=== PATIENT | male | born 1970 | race Caucasian/White ===

== ENCOUNTER 2019-11-02 21:33 | Emergency (ER) | payer MEDICAID, OTHER ==
[~2019-11-02] VITALS: Ht 180.3 cm; Wt 72.6 kg
[2019-11-02 21:52] VITALS: BP 136/88
== END 2019-11-02 23:10 | disposition home or self-care (01) ==
LOC: ER 21:36
DX: E11.9 Type 2 diabetes mellitus without complications (principal); Z76.0 Encounter for issue of repeat prescription
CPT/HCPCS: 82962

== ENCOUNTER 2019-12-17 21:03 | Emergency (ER) | payer MEDICAID ==
[~2019-12-17] VITALS: Ht 180.3 cm; Wt 72.6 kg
[2019-12-17 21:28] VITALS: BP 114/82
[2019-12-17 22:43] LABS: Basophils # (auto) 0.1 10 ^3/uL (0-0.2); Basophils % (auto) 1.3 % (0.0-2.0); Eosinophils # (auto) 0.2 10 ^3/uL (0-0.8); Eosinophils % (auto) 3.7 % (0.0-7.0); Hematocrit 44.8 % (41.0-53.0); Hemoglobin 15.1 g/dL (13.5-17.5); Lymphocytes # (auto) 1.1 10 ^3/uL (0.4-5.4); Lymphocytes % (auto) 23.5 % (10.0-50.0); Mean Corpuscular Hemoglobin 30.3 pg (28.0-32.0); Mean Corpuscular Hgb Conc. 33.6 g/dL (32.0-36.0); Mean Corpuscular Volume 90.1 fL (80.0-100.0); Monocytes # (auto) 0.5 10 ^3/uL (0-1.3); Monocytes % (auto) 10.9 % (0.0-12.0); Neutrophils # (auto) 2.9 10 ^3/uL (1.6-8.6); Neutrophils % (auto) 60.6 % (37.0-80.0); Platelet Count (auto) 243 10^3/uL (140-450); Red Blood Cells 4.97 10^6/uL (4.5-5.90); Red Cell Distribution Width 12.8 % (11.8-14.3); White Blood Cell 4.8 10^3/uL (4.4-10.8)
[2019-12-17 23:03] LABS: Albumin 3.7 g/dL (3.4-5.0); Calcium 8.8 mg/dL (8.5-10.1); Potassium 4.3 mmol/L (3.5-5.1)
[2019-12-17 23:07] LABS: Bilirubin, Total 0.5 mg/dL (0.2-1.0); Total Protein 7.5 g/dL (6.4-8.2)
== END 2019-12-17 23:00 | disposition left against medical advice (07) ==
LOC: ER 21:03
DX: R53.1 Weakness (principal); Z53.21 Procedure and treatment not carried out due to patient leaving prior to being seen by health care provider
CPT/HCPCS: 36415; 80053; 82962; 85025

== ENCOUNTER 2021-02-20 22:13 | Emergency (ER) | payer MEDICAID ==
[~2021-02-20] VITALS: Ht 180.3 cm; Wt 77.1 kg
[2021-02-21 02:31] VITALS: BP 112/81
== END 2021-02-21 03:29 | disposition home or self-care (01) ==
LOC: ER 22:15
DX: J06.9 Acute upper respiratory infection, unspecified (principal); K12.2 Cellulitis and abscess of mouth; E11.9 Type 2 diabetes mellitus without complications; Z20.822 Contact with and (suspected) exposure to COVID-19
CPT/HCPCS: 36415; 71045; 87426

== ENCOUNTER 2021-10-08 14:42 | Emergency (ER) | payer MEDICAID ==
[~2021-10-08] VITALS: Ht 180.3 cm; Wt 72.6 kg
[2021-10-08] MEDS ORDERED: cefTRIAXone W LIDOCAINE 1 GM IM IM ONE ×2 (15:00→18:00)
[2021-10-08] MEDS ORDERED: CLINDAMYCIN 600 MG/4 ML VL IM ONE (15:00)
[2021-10-08 15:35] LABS: Basophils # (auto) 0.2 10 ^3/uL (0-0.2); Basophils % (auto) 3.5 % (0.0-2.0); Eosinophils # (auto) 0.2 10 ^3/uL (0-0.8); Eosinophils % (auto) 2.8 % (0.0-7.0); Hematocrit 47.1 % (41.0-53.0); Hemoglobin 16.5 g/dL (13.5-17.5); Lymphocytes # (auto) 0.8 10 ^3/uL (0.4-5.4); Lymphocytes % (auto) 11.4 % (10.0-50.0); Mean Corpuscular Volume 88.8 fL (80.0-100.0); Monocytes # (auto) 0.7 10 ^3/uL (0-1.3); Monocytes % (auto) 9.6 % (0.0-12.0); Neutrophils # (auto) 5.2 10 ^3/uL (1.6-8.6); Neutrophils % (auto) 72.7 % (37.0-80.0); Nucleated Red Blood Cells % 0.1 %; Red Blood Cells 5.31 10^6/uL (4.5-5.90); Red Cell Distribution Width 13.1 % (11.8-14.3); White Blood Cell 7.1 10^3/uL (4.4-10.8)
[2021-10-08 15:59] LABS: BUN/Creatinine Ratio 11.8; Calcium 9.1 mg/dL (8.5-10.1); Potassium 4.5 mmol/L (3.5-5.1)
[2021-10-08 16:01] LABS: Bilirubin, Total 0.6 mg/dL (0.2-1.0); Total Protein 6.8 g/dL (6.4-8.2)
[2021-10-08] MEDS ORDERED: CLIN300C8 PO (17:28)
[2021-10-08] MEDS ORDERED: IBU600T PO (17:28)
[2021-10-08] MEDS ORDERED: LEVO-28 PO (17:28)
[2021-10-08] MEDS ORDERED: SODIUM CHLORIDE 0.9% 1,000 ML IV ONE (17:30)
[2021-10-08] MEDS ORDERED: InsuLIN REG 1unit/0.01ml Soln (100units/ml) IV ONE (17:30)
[2021-10-08] MEDS ORDERED: levoFLOXacin 500MG 100 ML IV ONE (17:30)
[2021-10-08 18:26] VITALS: BP 109/79
== END 2021-10-08 19:11 | disposition home or self-care (01) ==
LOC: ER 14:42
DX: L03.115 Cellulitis of right lower limb (principal); L03.116 Cellulitis of left lower limb; E11.65 Type 2 diabetes mellitus with hyperglycemia; E46 Unspecified protein-calorie malnutrition; Z68.22 Body mass index [BMI] 22.0-22.9, adult; Z88.0 Allergy status to penicillin
CPT/HCPCS: 36415; 73700; 80053; 85025; 96365; 96372; 99284; J1956; J7030; J0696

== ENCOUNTER 2022-02-24 18:29 | Emergency (ER) | payer MEDICAID ==
[~2022-02-24 18:29] MED LIST: CLIN300C8 PO; IBU600T PO; LEVO-28 PO
== END 2022-02-24 20:50 | disposition left against medical advice (07) ==
LOC: ER 18:30
DX: Z76.0 Encounter for issue of repeat prescription (principal); Z53.21 Procedure and treatment not carried out due to patient leaving prior to being seen by health care provider

== ENCOUNTER 2022-02-25 13:53 | Emergency (ER) | payer MEDICAID ==
[~2022-02-25] VITALS: Ht 180.3 cm; Wt 73.5 kg
[2022-02-25 14:19] VITALS: BP 118/81
[2022-02-26] MEDS ORDERED: INSU1INJ19 SC (16:11)
== END 2022-02-25 19:39 | disposition home or self-care (01) ==
LOC: ER 13:53
DX: E11.9 Type 2 diabetes mellitus without complications (principal); Z88.0 Allergy status to penicillin; Z76.0 Encounter for issue of repeat prescription; F12.10 Cannabis abuse, uncomplicated
CPT/HCPCS: 82962

== ENCOUNTER 2022-02-26 08:12 | Emergency (ER) | payer MEDICAID ==
[~2022-02-26] VITALS: Ht 180.3 cm; Wt 68.1 kg
[2022-02-26 08:56] LABS: Urine Bacteria NONE SEEN /hpf (None Seen); Urine Blood Negative /uL (Negative); Urine Specific Gravity 1.033 (1.001-1.035); Urine WBC <1 /hpf (0 - 3)
[2022-02-26] MEDS ORDERED: SODIUM CHLORIDE 0.9% 1,000 ML IV ONE (09:00)
[2022-02-26 12:37] LABS: Basophils # (auto) 0.1 10 ^3/uL (0-0.2); Eosinophils # (auto) 0.1 10 ^3/uL (0-0.8); Eosinophils % (auto) 1.6 % (0.0-7.0); Hematocrit 49.4 % (41.0-53.0); Hemoglobin 16.7 g/dL (13.5-17.5); Mean Corpuscular Hemoglobin 30.6 pg (28.0-32.0); Mean Corpuscular Hgb Conc. 33.9 g/dL (32.0-36.0); Mean Corpuscular Volume 90.4 fL (80.0-100.0); Monocytes # (auto) 0.4 10 ^3/uL (0-1.3); Neutrophils # (auto) 4.1 10 ^3/uL (1.6-8.6); Neutrophils % (auto) 72.4 % (37.0-80.0); Nucleated Red Blood Cells % 0.1 %; Red Blood Cells 5.47 10^6/uL (4.5-5.90); Red Cell Distribution Width 13.4 % (11.8-14.3); White Blood Cell 5.6 10^3/uL (4.4-10.8)
[2022-02-26 13:05] LABS: Albumin 3.7 g/dL (3.4-5.0); BUN/Creatinine Ratio 11.2; Calcium 9.3 mg/dL (8.5-10.1); Potassium 4.4 mmol/L (3.5-5.1)
[2022-02-26 13:08] LABS: Bilirubin, Total 0.8 mg/dL (0.2-1.0); Total Protein 7.7 g/dL (6.4-8.2)
[2022-02-26] MEDS ORDERED: INSULIN LISPRO (HUMAN) 100 UNITS/ML ML SC ONE (16:00)
[2022-02-26] MEDS ORDERED: INSU1INJ19 SC (16:11)
[2022-02-26 22:10] VITALS: BP 134/82
== END 2022-02-26 22:17 | disposition home or self-care (01) ==
LOC: ER 08:12
DX: E11.65 Type 2 diabetes mellitus with hyperglycemia (principal); Z79.1 Long term (current) use of non-steroidal anti-inflammatories (NSAID); Z79.4 Long term (current) use of insulin; Z79.2 Long term (current) use of antibiotics; Z88.0 Allergy status to penicillin
CPT/HCPCS: 36415; 80053; 81001; 83735; 85025; 96372; 99283; J1815

== ENCOUNTER 2022-08-30 09:02 | Emergency (ER) | payer MEDICAID ==
[~2022-08-30] VITALS: Ht 172.7 cm; Wt 77.0 kg
[~2022-08-30 09:02] MED LIST changes: +INSU1INJ19 SC
[2022-08-30 16:00] VITALS: BP 114/72
== END 2022-08-30 16:57 | disposition left against medical advice (07) ==
LOC: ER 09:02 → EDBD 09:02 → ER 16:57
DX: E10.649 Type 1 diabetes mellitus with hypoglycemia without coma (principal); R07.89 Other chest pain; Z88.0 Allergy status to penicillin; Z79.4 Long term (current) use of insulin; Z79.1 Long term (current) use of non-steroidal anti-inflammatories (NSAID); Z79.2 Long term (current) use of antibiotics
CPT/HCPCS: 82962; 93005

== ENCOUNTER 2024-03-31 14:30 | Emergency (ER) | payer MEDICAID ==
[~2024-03-31] VITALS: Ht 170.2 cm; Wt 74.3 kg
[~2024-03-31 14:30] MED LIST changes: -CLIN300C8 PO; -LEVO-28 PO
[2024-03-31 15:10] VITALS: BP 116/74; PULSE 89; RESP 18; O2SAT 95
[2024-03-31] MEDS: TETANUS-DIPTH-ACEL PERTUSSIS 0.5ML SYR Tdap IM ONE (15:27)
[2024-03-31] MEDS ORDERED: CEPH500C PO (15:27)
[2024-03-31] MEDS ORDERED: NAPR-746 PO (15:27)
[2024-03-31 15:28] VITALS: TEMP 98.9
[2024-03-31] MEDS: ACETAMINOPHEN 500 MG TAB PO ONE (15:28)
== END 2024-03-31 15:33 | disposition home or self-care (01) ==
LOC: ER 14:32
DX: S61.235A Puncture wound without foreign body of left ring finger without damage to nail, initial encounter (principal); S61.237A Puncture wound without foreign body of left little finger without damage to nail, initial encounter; E11.9 Type 2 diabetes mellitus without complications; F17.210 Nicotine dependence, cigarettes, uncomplicated; F15.90 Other stimulant use, unspecified, uncomplicated; F12.90 Cannabis use, unspecified, uncomplicated; Z88.0 Allergy status to penicillin; Z79.899 Other long term (current) drug therapy; W01.0XXA Fall on same level from slipping, tripping and stumbling without subsequent striking against object, initial encounter; Y93.89 Activity, other specified; Y92.89 Other specified places as the place of occurrence of the external cause; Y99.8 Other external cause status
CPT/HCPCS: 90471; 90715

== ENCOUNTER 2024-05-12 07:01 | Inpatient (IN) | payer MEDICAID ==
[~2024-05-12] VITALS: Ht 180.3 cm; Wt 75.0 kg
[~2024-05-12 07:01] MED LIST changes: +CEPH500C PO; +NAPR-746 PO
[2024-05-12 07:27] LABS: Basophils # (auto) 0.1 10 ^3/uL (0-0.2); Basophils % (auto) 1.1 % (0.0-2.0); Eosinophils # (auto) 0.2 10 ^3/uL (0-0.8); Eosinophils % (auto) 3.7 % (0.0-7.0); Hemoglobin 15.8 g/dL (13.5-17.5); Lymphocytes # (auto) 1.1 10 ^3/uL (0.4-5.4); Lymphocytes % (auto) 21.7 % (10.0-50.0); Mean Corpuscular Hemoglobin 32.3 pg (28.0-32.0); Monocytes # (auto) 0.4 10 ^3/uL (0-1.3); Monocytes % (auto) 7.9 % (0.0-12.0); Neutrophils # (auto) 3.2 10 ^3/uL (1.6-8.6); Neutrophils % (auto) 65.6 % (37.0-80.0); Nucleated Red Blood Cells % 0.2 %; Platelet Count (auto) 238 10^3/uL (140-450); Red Blood Cells 4.89 10^6/uL (4.5-5.90); Red Cell Distribution Width 12.9 % (11.8-14.3); White Blood Cell 4.9 10^3/uL (4.4-10.8)
--- NOTE | 2024-05-12 07:29 | ED.PDOC ---
History of present illness HPI Comments 53 y.o male with PMH of DM, presents to the ED for an evaluation of hypoglycemia s/p taking 30 units of insulin instead of 3 units. Patient presented to triage with a blood sugar of 62 with a repeat of 60 at bedside s/p juice and sandwich intake. Patient has a history of hypoglycemia events in the past. No abdominal pain, nausea, vomiting, diarrhea, fever, chills or sweats reported. Patient has additional social history of methamphetamine, marijuana and alcohol use. Time Seen by MD: 07:19 Primary Care Provider: JOSHUA History of present illness: Nurses Notes, Medications, Allergies Allergies: Coded Allergies: Penicillins (Verified Allergy, Unknown, 11/02/19) Home Meds Active Scripts Naproxen (Naproxen) 500 Mg Tab, 500 MG PO BID, #30 TAB Prov:JAY MALDONADO 03/31/24 Cephalexin Monohydrate (Cephalexin) 500 Mg Cap, 1 CAP PO QID, #40 CAP Prov:JAY MALDONADO 03/31/24 Insulin Glargine (Basaglar Kwikpen) 100 Unit/Ml Inj, 30 UNIT SC QAM for 90 Days, #3 INJ Prov:LORA ANDINO MD 02/26/22 Ibuprofen Micronized (MOTRIN TABLET) 600 Mg Tb, 600 MG PO TID PRN for 7 Days, #21 TAB *Black box warning-NSAIDS can increase risk of [place] & hypertension, GI irritation, ulceration, bleed, perferation. Do not use post cardiac surgery. Use short duration/lowest effective dose. Prov:GEMA HANEY MD 10/08/21 Information Source: Patient Mode of Arrival: Ambulatory Timing: Hours Duration: Since onset [place]: None History of: Diabetes, Insulin use Modifying factors: Nothing Associated signs and symptoms: None Past Medical History PAST MEDICAL HISTORY: DM Surgical History: Denies all surgeries Family History Family History: Reviewed,noncontributory to illness Social History Smoker: Cigarettes, Other Alcohol: Other Drugs: Marijuana, Methamphetamine Lives In: Home Constitutional: denies: chills, diaphoresis, fatigue, fever, malaise, sweats, weakness, others EENTM: denies: blurred vision, double vision, ear bleeding, ear discharge, ear drainage, ear pain, ear ringing, eye pain, eye redness, hearing loss, mouth pain, mouth swelling, nasal discharge, nose bleeding, nose congestion, nose pain, photophobia, tearing, throat pain, throat swelling, voice changes, others Respiratory: denies: cough, hemoptysis, orthopnea, SOB at rest, shortness of breath, SOB with excertion, stridor, wheezing, others Cardiovascular: denies: chest pain, dizzy spells, diaphoresis, Dyspnea on exertion, edema, irregular heart beat, left arm pain, lightheadedness, palpitations, PND, syncope, others Gastrointestinal: denies: abdomen distended, abdominal pain, blood streaked bowels, constipated, diarrhea, dysphagia, difficulty swallowing, hematemesis, melena, nausea, poor appetite, poor fluid intake, rectal bleeding, rectal pain, vomiting, others Genitourinary: denies: burning, dysuria, flank pain, frequency, hematuria, incontinence, penile discharge, penile sore, pain, testicle pain, testicle swelling, urgency, others Neurological: denies: dizziness, fainting, headache, left sided numbness, left sided weakness, numbness, paresthesia, pre-existing deficit, right sided numbness, right sided weakness, seizure, speech problems, tingling, tremors, weakness, others Musculoskeletal: denies: back pain, gout, joint pain, joint swelling, muscle pain, muscle stiffness, neck pain, others Integumetry: denies: bruises, change in color, change in hair/nails, dryness, laceration, lesions, lumps, rash, wounds, others Allergic/Immunocompromised: denies: Difficulty Healing, Frequent Infections, Hives, Itching, others Hematologic/Lymphatic: denies: anemia, blood clots, easy bleeding, easy bruising, swollen glands, others Endocrine: denies: excessive hunger, excessive sweating, excessive thirst, excessive urination, flushing, intolerance to cold, intolerance to heat, unexplained weight gain, unexplained weight loss, others Psychiatric: denies: anxiety, bipolar disorder, depression, hopeless, panic disorder, schizophrenia, sleepless, suicidal, others All Other Systems: Reviewed and Negative Physical Exam General Appearance: Moderate Distress HEENT: Normal ENT Inspection, Pharynx Normal, TMs Normal Neck: Full Range of Motion, Non-Tender, Normal, Normal Inspection Respiratory: Chest Non-Tender, Lungs Clear, No Accessory Muscle Use, No Respiratory Distress, Normal Breath Sounds Cardiovascular: No Edema, No JVD, No Murmur, No Gallop, Normal Peripheral Pulses, Regular Rate/Rhythm Breast Exam: Deferred Gastrointestinal: No Organomegaly, Non Tender, No Pulsatile Mass, Normal Bowel Sounds, Soft Genitalia: Deferred Pelvic: Deferred Rectal: Deferred Extremities: No calf tenderness, Normal capillary refill, Normal inspection, Normal range of motion, Non-tender, No pedal edema Musculoskeletal : Apperance: Normal Neurologic: Alert, chief pilot II-XII nml as Tested, No Motor Deficits, Normal Affect, Normal Mood, No Sensory Deficits Cerebellar Function: Normal Reflexes: Normal Skin: Dry, Normal Color, Warm Peripheral Pulses: 3+ Radial (R), 3+ Radial (L) Lymphatic: No Adenopathy Was a procedure done? Was a procedure done?: No Differential Diagnosis (DM) Differential Diagnosis: Dehydration, Electrolyte Abnormality, Hypoglycemia X-Ray, Labs, Meds, VS Vital Signs Date Time Temp Pulse Resp B/P (MAP) Pulse Ox O2 Delivery O2 Flow Rate FiO2 05/12/24 08:00 80 18 100 Room Air* 0 21 05/12/24 07:26 97.4 80 18 142/88 (106) 98 97.4 05/12/24 07:26 97.4 80 18 142/88 (106) 98 Lab Test 05/12/24 10:09 05/12/24 08:16 05/12/24 07:20 05/12/24 07:18 Range/Units POC Glucose 78 102 60 L 70-106 mg/dl White Blood Count 4.9 4.4-10.8 10^3/uL Red Blood Count 4.89 4.5-5.90 10^6/uL Hemoglobin 15.8 13.5-17.5 g/dL Hematocrit 45.0 41.0-53.0 % Mean Corpuscular Volume 92.0 80.0-100.0 fL Mean Corpuscular Hemoglobin 32.3 H 28.0-32.0 pg Mean Corpuscular Hemoglobin Concent 35.0 32.0-36.0 g/dL Red Cell Distribution Width 12.9 11.8-14.3 % Platelet Count 238 140-450 10^3/uL Mean Platelet Volume 7.6 6.9-10.8 fL Neutrophils (%) (Auto) 65.6 37.0-80.0 % Lymphocytes (%) (Auto) 21.7 10.0-50.0 % Monocytes (%) (Auto) 7.9 0.0-12.0 % Eosinophils (%) (Auto) 3.7 0.0-7.0 % Basophils (%) (Auto) 1.1 0.0-2.0 % Neutrophils # (Auto) 3.2 1.6-8.6 10 ^3/uL Lymphocytes # (Auto) 1.1 0.4-5.4 10 ^3/uL Monocytes # (Auto) 0.4 0-1.3 10 ^3/uL Eosinophils # (Auto) 0.2 0-0.8 10 ^3/uL Basophils # (Auto) 0.1 0-0.2 10 ^3/uL Nucleated Red Blood Cells 0.2 % Sodium Level 144 136-145 mmol/L Potassium Level 4.0 3.5-5.1 mmol/L Chloride Level 108 H 98-107 mmol/L Carbon Dioxide Level 28 20-31 mmol/L Anion Gap 8 5-15 Blood Urea Nitrogen 12 9-23 mg/dL Creatinine 1.04 0.700-1.30 mg/dL Glomerular Filtration Rate Calc 87 >90 mL/min BUN/Creatinine Ratio 11.5 10.0-20.0 Serum Glucose 54 L 74-106 mg/dL Calcium Level 9.8 8.7-10.4 mg/dL Test 05/12/24 07:13 Range/Units POC Glucose 62 L 70-106 mg/dl Current Medications Medications (Trade) Dose Ordered Sig/Merly Route Start Time Stop Time Status Last Admin Dextrose 1,000 ml @ 75 mls/hr [id number] ONCE IV 05/12/24 07:30 05/12/24 20:49 05/12/24 08:55 Patient alert. Access dose of insulin. He denies suicidal or homicidal ideation. Vitals stable. Answering all questions. Hemoglobin within normal limits. Continues to smoke cigarettes. Explained to the patient about effects of smoking cigarettes for 15 minutes. Started D10. He is on insulin. Reviewed his history. Explained to the patient. Continue cardiac monitoring. Time of 1ST Reevaluation: 07:29 Reevaluation 1ST: Unchanged Patient Education/Counseling: Diagnosis, Treatment, Prognosis Family Education/Counseling: No Family Present Additional Information The following tests were ordered, and results were reviewed by me: LAB and PHA I discussed treatment and results with medical personnel Departure 1 Departure Time of Disposition: 07:34 Impression: Primary Impression: Hypoglycemic episode in patient with diabetes mellitus Disposition: ADMITTED INPATIENT Admit to: Med Surg Condition: Guarded Critical Care Note Critical Care Time?: Yes (45 min-critical care time only) Stability Stability form required: No I personally scribed for GEMA HANEY MD ([email or web address]) on 05/12/24 at 07:29. Electronically submitted by Anuradha Crowe ([facility]). I personally scribed for GEMA HANEY MD ([email or web address]) on 05/12/24 at 10:52. Electronically submitted by Anuradha Crowe ([facility]). GEMA HANEY MD May 12, 2024 07:29
[2024-05-12 07:44] LABS: Sodium 144 mmol/L (136-145)
[2024-05-12 07:45] LABS: Anion Gap 8 (5-15); Calcium 9.8 mg/dL (8.7-10.4); Carbon Dioxide 28 mmol/L (20-31)
[2024-05-12 07:50] LABS: BUN/Creatinine Ratio 11.5 (10.0-20.0); Blood Urea Nitrogen 12 mg/dL (9-23)
[2024-05-12 07:57] LABS: Chloride 108 mmol/L (98-107); Glucose 54 mg/dL (74-106)
[2024-05-12 08:00] VITALS: PULSE 80; RESP 18; O2SAT 100
[2024-05-12] MEDS: DEXTROSE 10% 1,000 ML IV ONE (08:55)
[2024-05-12] MEDS ORDERED: ACETAMINOPHEN 325 MG TAB PO PRN (11:30)
[2024-05-12] MEDS ORDERED: DOCUSATE SOD 100 MG CAP PO PRN (11:30)
[2024-05-12] MEDS ORDERED: DEXTROSE (50%) 50ML SYRG IV PRN (11:30)
[2024-05-12] MEDS ORDERED: MORPHINE SULFATE INJ 2 MG/ml SYRG IV PRN (11:30)
[2024-05-12] MEDS ORDERED: ONDANSETRON HCL 4 MG/2 ML VIAL IV PRN (11:30)
[2024-05-12] MEDS ORDERED: HYDROcodone-ACET 5/325MG TAB PO PRN (11:30)
[2024-05-12] MEDS ORDERED: LISI2.5T47 PO (11:31)
--- NOTE | 2024-05-12 11:55 | DVHHP2 ---
History of Present Illness Reason for Visit: Hypoglycemia History of Present Illness Bairon Duncan is a 53YO M with pmHx of diabetes, polysubstance abuse, methamphetamine abuse, marijuana, tobacco use, and etoh abuse who presents to the ED for hypoglycemia. Patient reports that he checked his blood sugar this morning and it was 200s then he accidentally gave himself an injection of 30 units instead of 3 units humalog. He reports that he no longer has any more lantus left and stated he gets refills from his pcp but because he was busy, he was unable to get a refill. Patient denies chest pain, shortness of breath, fever, chills, lightheadness, dizziness, and headache. Endocrine: Diabetes Past Surgical History: None Family History: None Smoke: 1 pack per day ALCOHOL: heavy Drugs: Marijuana, Other (meth) Lives: with Family Domestic Violence: Neg Review of Systems Constitutional: No: Fever, Chills, Sweats, Weakness, Malaise, Other Eyes: No: Pain, Vision change, Conjunctivae inflammation, Eyelid inflammation, Other, Redness ENT: No: Ear pain, Ear discharge, Nose pain, Nose discharge, Nose congestion, Mouth pain, Mouth swelling, Throat pain, Throat swelling, Other Respiratory: No: Cough, Dry, Shortness of breath, SOB with excertion, Wheezing, Hemoptysis, Pleuritic Pain, Sputum, Wheezing, Other Cardiovascular: No: Chest Pain, Palpitations, Orthopnea, Paroxysmal Noc. Dyspnea, Edema, Lt Headedness, Other Gastrointestinal: No: Nausea, Vomiting, Abdominal Pain, Diarrhea, Constipation, Melena, Hematochezia, Other Genitourinary: No Dysuria, No Frequency, No Incontinence, No Hematuria, No Retention, No Other Musculoskeletal: No: other, neck pain, shoulder pain, arm pain, back pain, hand pain, leg pain, foot pain Skin: No: Rash, Lesions, Jaundice, Bruising, Other Neurological: No: Weakness, Numbness, Incoordination, Change in speech, Confusion, Seizures, Other Allergies: Coded Allergies: Penicillins (Verified Allergy, Unknown, 11/02/19) Exam Vital Signs Vital Signs Date Time Temp Pulse Resp B/P (MAP) Pulse Ox O2 Delivery O2 Flow Rate FiO2 05/12/24 08:00 80 18 100 Room Air* 0 21 05/12/24 07:26 97.4 142/88 (106) 97.4 General Appearance: Alert, Oriented X3, Cooperative, No acute distress HEENT: Atraumatic, PERRLA, EOMI, Mucous membr. moist/pink Respiratory: Clear to auscultation, Normal air movement Cardiovascular: Regular rate, Normal S1, Normal S2, No murmurs Abdominal: Normal bowel sounds, Soft, No tenderness, No hepatospenomegaly, No masses Extremities: No cyanosis, No edema, Normal pulses, No tenderness/swelling Skin: No rashes, No breakdown, No significant lesion Neuro: Normal gait, Normal speech, Strength at 5/5 X4 ext, Normal tone, Sensation intact Psych/Mental Status: Mental status NL, Mood NL Labs/Xrays Labs Test 05/12/24 10:09 05/12/24 07:18 Range/Units POC Glucose 78 70-106 mg/dl White Blood Count 4.9 4.4-10.8 10^3/uL Red Blood Count 4.89 4.5-5.90 10^6/uL Hemoglobin 15.8 13.5-17.5 g/dL Hematocrit 45.0 41.0-53.0 % Mean Corpuscular Volume 92.0 80.0-100.0 fL Mean Corpuscular Hemoglobin 32.3 H 28.0-32.0 pg Mean Corpuscular Hemoglobin Concent 35.0 32.0-36.0 g/dL Red Cell Distribution Width 12.9 11.8-14.3 % Platelet Count 238 140-450 10^3/uL Mean Platelet Volume 7.6 6.9-10.8 fL Neutrophils (%) (Auto) 65.6 37.0-80.0 % Lymphocytes (%) (Auto) 21.7 10.0-50.0 % Monocytes (%) (Auto) 7.9 0.0-12.0 % Eosinophils (%) (Auto) 3.7 0.0-7.0 % Basophils (%) (Auto) 1.1 0.0-2.0 % Neutrophils # (Auto) 3.2 1.6-8.6 10 ^3/uL Lymphocytes # (Auto) 1.1 0.4-5.4 10 ^3/uL Monocytes # (Auto) 0.4 0-1.3 10 ^3/uL Eosinophils # (Auto) 0.2 0-0.8 10 ^3/uL Basophils # (Auto) 0.1 0-0.2 10 ^3/uL Nucleated Red Blood Cells 0.2 % Sodium Level 144 136-145 mmol/L Potassium Level 4.0 3.5-5.1 mmol/L Chloride Level 108 H 98-107 mmol/L Carbon Dioxide Level 28 20-31 mmol/L Anion Gap 8 5-15 Blood Urea Nitrogen 12 9-23 mg/dL Creatinine 1.04 0.700-1.30 mg/dL Glomerular Filtration Rate Calc 87 >90 mL/min BUN/Creatinine Ratio 11.5 10.0-20.0 Serum Glucose 54 L 74-106 mg/dL Calcium Level 9.8 8.7-10.4 mg/dL CHEST RADIOGRAPH Indication: polysubstance abuse Technique: Single frontal view of the chest was obtained Comparison: CHEST XRAY 1 VIEW on DOS: 02/20/21 FINDINGS: Lines and Tubes: None Lungs: No focal consolidation. Pleura: No effusion. No pneumothorax. Cardiomediastinal contours: Unremarkable Bones: No acute osseous abnormality. IMPRESSION: 1. Decreased inspiratory effort when compared to 02/20/2021. 2. No infiltrates or effusions. Assessment/Plan Assessment/Plan Assessment/Plan: Hypoglycemia DM2 Glucosuria HgbA1C 8.3% ISS and accuchecks chemical educator to teach patient about medication and diet compliance ua uds labs ekg cxr noted FEN/DVT PPX diet lovenox PUD ppx not indicated no hx of GERD Polysubstance abuse Amphetamine and cocaine positive smoking cessation discussed alcohol cessation discussed Discussed plan of care with patient and nurse Home medications reconciled Admit to tele for continuous monitoring Plan discussed with: Patient My Orders Orders - BRIANNE CA [employer] Procedure Category Date Status Time Hemoglobin A1c LAB 05/12/24 In Process 11:07 Admit ADMIT 05/12/24 Transmitted 11:16 Allergies ENRIQUE 05/12/24 In Process 11:16 Code Status CODE 05/12/24 Transmitted 11:16 Hydrocodone-Acet PHA 05/12/24 Transmitted 5/325mg Tab ([place] 11:30 Ondansetron Hcl PHA 05/12/24 Transmitted (Zofran) 11:30 Docusate Sodium PHA 05/12/24 Transmitted Capsule (Colace 11:30 Complete Blood Count LAB 05/13/24 Verified 04:00 Comprehensive LAB 05/13/24 Verified Metabolic Panel 04:00 Cardiac DIET 05/12/24 Transmitted Diet-2gna,Lofat,Lochol Lunch Acetaminophen Tablet PHA 05/12/24 Transmitted (Tylenol Tablet) 11:30 Morphine Sulfate PHA 05/12/24 Transmitted Injection 11:30 Glucose Blood PHA 05/12/24 Transmitted (Accu-Chek Comfort 11:30 Mild Sliding Scale PHA 05/12/24 Transmitted 11:30 Dextrose 50% Syringe PHA 05/12/24 Transmitted 11:30 Date of Service: May 12, 2024 Billing Provider: BRIANNE CA Common Visit Codes: [id number] INP/OBS CARE (MOD) BRIANNE CA May 12, 2024 11:55
[2024-05-12] MEDS: InsuLIN REG 1unit/0.01ml Soln (100units/ml) SC SCH (12:12)
[2024-05-12] MEDS: ACCU-CHEK COMFORT CURVE STRIP VI SCH (12:12)
[2024-05-12 12:16] LABS: Urine Bacteria None Seen /hpf (None Seen); Urine WBC None Seen /hpf (0 - 3)
[2024-05-12 13:04] LABS: Amphetamine Screen, Urine Pos (NEGATIVE); Barbiturate Scree,Urine Neg (NEGATIVE); Benzodiazephine Screen, Urine Neg (NEGATIVE)
[2024-05-12 13:05] LABS: Cannabinoid Screen, Urine Neg (NEGATIVE); Cocaine Screen, Urine Pos (NEGATIVE); Opiate Scree,Urine Neg (NEGATIVE); Phencyclidine Screen, Urine Neg (NEGATIVE)
[2024-05-12 13:09] LABS: Urine Blood Negative /uL (Negative); Urine Clarity Clear (Clear); Urine Color Light-Yellow (Yellow); Urine Protein, UAD Negative (Negative); Urine Specific Gravity 1.017 (1.001-1.035); Urine Urobilinogen Normal (Negative)
[2024-05-12 13:17] VITALS: BP 116/78; PULSE 63; PULSE 64; RESP 16; RESP 18; TEMP 97.9; O2SAT 100; O2SAT 95
[2024-05-12 13:41] VITALS: BP 116/78; PULSE 63; RESP 18; TEMP 97.7; O2SAT 100
[2024-05-12] MEDS ORDERED: INSLANTI SC (14:06)
--- NOTE | 2024-05-12 15:33 | DVH ---
CHEST RADIOGRAPH Indication: polysubstance abuse Technique: Single frontal view of the chest was obtained Comparison: CHEST XRAY 1 VIEW on DOS: 02/20/21 FINDINGS: Lines and Tubes: None Lungs: No focal consolidation. Pleura: No effusion. No pneumothorax. Cardiomediastinal contours: Unremarkable Bones: No acute osseous abnormality. IMPRESSION: 1. Decreased inspiratory effort when compared to 02/20/2021. 2. No infiltrates or effusions.
[2024-05-12 16:00] VITALS: BP 112/66; PULSE 64; RESP 16; TEMP 97.8; O2SAT 95
[2024-05-13] MEDS ORDERED: ENOXAPARIN SOD 40 MG/0.4 ML SYRINGE SC SCH (10:00)
== END 2024-05-12 20:19 | disposition left against medical advice (07) | DRG 420 ==
LOC: ER 07:01 → OVERFLOW 11:16 → CENTRAL 12:48 → TELE-CENTR 17:13
DX: E11.649 Type 2 diabetes mellitus with hypoglycemia without coma (principal); F17.210 Nicotine dependence, cigarettes, uncomplicated; R81 Glycosuria; F19.10 Other psychoactive substance abuse, uncomplicated; Z88.0 Allergy status to penicillin
CPT/HCPCS: 36415; 71045; 80048; 80307; 81001; 82962; 83036; 85025; 96372; 96374; 99291; G0378; J1815

== ENCOUNTER 2024-08-11 02:17 | Emergency (ER) | payer MEDICAID ==
[~2024-08-11] VITALS: Ht 180.3 cm; Wt 75.0 kg
[~2024-08-11 02:17] MED LIST changes: -CEPH500C PO; -IBU600T PO; +INSLANTI SC; +LISI2.5T47 PO; -NAPR-746 PO
[2024-08-11 02:23] VITALS: BP 143/70; PULSE 91; RESP 16; O2SAT 99
--- NOTE | 2024-08-11 02:33 | ED.PDOC ---
History of Present Illness HPI Comments 54 year old male brought in by EMS with a chief complaint of hypoglycemia onset today (08/11/24). Per EMS, patient was experiencing slurred speech, was delirious, BS was 31. Patient was given a sandwich, soda by sibling, D10 by EMS, repeat BS was 140. Patient states he does not check his BS regularly due to not having machine. During assessment, BS was 166, patient states he has no complaints. PMHx DM. Denies nausea, vomiting, diarrhea, abdominal pain, dizziness, blurry vision, headache, chest pain, shortness of breath. No other symptoms or modifying factors present at this time. Chief Complaint: Hypoglycemia Time Seen by MD: 02:25 Primary Care Provider: JOSHUA Reviewed Notes: Medications, Allergies Allergies: Coded Allergies: Penicillins (Verified Allergy, Unknown, 11/02/19) Home Meds Active Scripts Insulin Glargine (Basaglar Kwikpen) 100 Unit/Ml Inj, 30 UNIT SC QAM for 90 Days, #3 INJ Prov:LORA ANDINO MD 02/26/22 Reported Medications Lisinopril (Lisinopril) 2.5 Mg Tab, 1 TAB PO DAILY 05/12/24 Insulin Glargine (Lantus) 100 Unit/Ml Inj, 100 UNIT SC, INJ 05/12/24 Information Source: Patient, Emergency Med Personnel Mode of Arrival: EMS Severity: Moderate Timing: Hours Duration: Since onset Prehospital treatment: Other (D10) Vital Signs Vital Signs Date Time Temp Pulse Resp B/P (MAP) Pulse Ox O2 Delivery O2 Flow Rate FiO2 08/11/24 02:23 97.3 91 16 143/70 (94) 99 Physical Exam General: Awake, alert and oriented. No acute distress. Skin: Skin in warm, dry and intact. Appropriate color for ethnicity. HEENT: The head is normocephalic and atraumatic. Conjunctivae are clear without exudates or hemorrhage. Sclera is non-icteric. EOM are intact. No signs of nystagmus. Eyelids are normal in appearance without swelling or lesions. Oral mucosa is pink and moist Neck: The neck is supple with normal range of motion. No JVD. Cardiac: Heart rate and rhythm are normal. No murmurs, gallops, or rubs are auscultated. Respiratory: No signs of respiratory distress. Lung sounds are clear in all lobes bilaterally without rales, ronchi, or wheezes. Abdominal: Abdomen is soft, non-tender without distention. Bowel sounds are present and normoactive in all four quadrants. Extremities: Upper and lower extremities are atraumatic in appearance without deformity or edema. Neurological: The patient is awake, alert and oriented to person, place, and time with normal speech. Speech is clear. There is no facial asymmetry. Psychiatric: Appropriate mood and affect. Good judgement and insight. No visual or auditory hallucinations. Review of Systems: REVIEW OF SYSTEMS: No fever, no chills, or fatigue HEENT: No sore throat, no earache, no congestion, no neck pain. Cardiac: No chest pain. No palpitations. Lungs: No shortness of breath, no cough. GI: No nausea, no vomiting, no diarrhea, no constipation, no abdominal pain : No dysuria, frequency, or urgency. No hematuria. Musculoskeletal: No joint pain , no joint swelling, no extremity edema. Skin: No rash, no itching. Neuro: No headache, no dizziness, no weakness Past Medical History PAST MEDICAL HISTORY: DM Surgical History: Denies all surgeries Family History Family History: Reviewed,noncontributory to illness Social History Smoker: Cigarettes, Other Alcohol: Other Drugs: Marijuana, Methamphetamine Lives In: Home Was a procedure done? Was a procedure done?: No Differential Dx Considerations may include: Medication overdose, refractory hypoglycemia, other X-Ray, Labs, Meds, VS Vital Signs Date Time Temp Pulse Resp B/P (MAP) Pulse Ox O2 Delivery O2 Flow Rate FiO2 08/11/24 02:23 97.3 91 16 143/70 (94) 99 Time of 1ST Reevaluation: 02:55 Reevaluation 1ST: Unchanged Patient Education/Counseling: Diagnosis, Treatment, Prognosis Family Education/Counseling: No Family Present Departure 1 Departure Time of Disposition: 04:31 Impression: Primary Impression: Hypoglycemia Additional Impression: Left against medical advice Disposition: 07 LEFT AGAINST MEDICAL ADVICE Condition: Stable Comments 54-year-old male who presented to the emergency department with hypoglycemia. He was able to tolerate p.o. and in the emergency department. He was advised to have blood sugar rechecked prior to discharge and further observation to ensure his blood sugar would not drop again. He did not want to wait. She was awake, alert and ambulated out of the emergency department on his own. Despite our efforts, patient has decided to leave against medical advice. The patient has a normal mental status and full decisional capacity. Patient has been informed of the benefits of staying such as further diagnosis and treatment of possible serious etiology of the symptoms, and the risks of leaving such as , chronic pain, permanent disability or other serious adverse events which might be attributed to leaving. The patient displays clear understanding of these benefits and risks and chooses to leave. The patient is been informed also that they may return here at any time if they change their mind or need to further concerns or questions has been referred to their local medical physician for follow up TAMIKA. Critical Care Note Critical Care Time?: No Stability Stability form required: No I personally scribed for BELLA BREAUX MD ([email or web address]) on 08/11/24 at 02:33. Electronically submitted by Meagan Eason ([email or web address]). BELLA BREAUX MD Aug 11, 2024 02:33
== END 2024-08-11 04:30 | disposition left against medical advice (07) ==
LOC: EDSEX 02:17 → EDBD 02:17 → ER 02:17
DX: E11.649 Type 2 diabetes mellitus with hypoglycemia without coma (principal); F17.210 Nicotine dependence, cigarettes, uncomplicated; Z79.899 Other long term (current) drug therapy; Z88.0 Allergy status to penicillin; Z79.4 Long term (current) use of insulin

== ENCOUNTER 2025-03-25 23:19 | Emergency (ER) | payer MEDICAID ==
[~2025-03-25] VITALS: Ht 180.3 cm; Wt 72.6 kg
[2025-03-25 23:50] LABS: Hematocrit 46.6 % (41.0-53.0); Hemoglobin 16.1 g/dL (13.5-17.5); Mean Corpuscular Hemoglobin 31.6 pg (28.0-32.0); Mean Corpuscular Volume 91.5 fL (80.0-100.0); Nucleated Red Blood Cells % 0.2 %
[2025-03-25 23:53] LABS: Chloride 106 mmol/L (98-107); Potassium 4.2 mmol/L (3.5-5.1); Sodium 144 mmol/L (136-145)
[2025-03-25 23:54] LABS: Anion Gap 8 (5-15); Calcium 9.3 mg/dL (8.7-10.4); Carbon Dioxide 30 mmol/L (20-31)
[2025-03-25 23:59] LABS: BUN/Creatinine Ratio 11.5 (10.0-20.0); Blood Urea Nitrogen 15 mg/dL (9-23)
[2025-03-26] LABS: Glucose 107 mg/dL (74-106)
[2025-03-26 00:20] VITALS: PULSE 80; RESP 20; O2SAT 97
[2025-03-26] MEDS: LIDOCAINE 1% HCL (LOCAL ANESTH.) INJ 20ML MDV IJ ONE (00:45)
[2025-03-26] MEDS ORDERED: CEPH250C PO (01:41)
[2025-03-26] MEDS ORDERED: IBUP-1455 PO (01:41)
[2025-03-26] MEDS ORDERED: ACET500T58 PO (01:41)
--- NOTE | 2025-03-26 01:42 | ED.PDOC ---
History of Present Illness HPI Comments This patient is a 54-year-old male who was brought to the ED by EMS due to multiple concerns. According to EMS, patient has been drinking heavily with a possible methamphetamine use when he fell down on the street. Paramedics arrived to a significant facial wound above the left eyebrow with crusted blood. EMS checked blood sugar at the scene and stated it was 20. Patient was given multiple rounds of glucose and had a 2nd reading by EMS at 46. At time of evaluation, patient was intoxicated but coherent and stable. Crusted blood throughout left eyebrow region and into the face. Vital signs were stable. Patient has a history of diabetes and utilize his insulin, but does not check his sugars nor utilize a sliding scale. Chief Complaint: Hypoglycemia Time Seen by MD: 23:24 Primary Care Provider: JOSHUA Myers Notes: Nurses Notes, Service Director Notes, Medications, Allergies Allergies: Coded Allergies: Penicillins (Verified Allergy, Unknown, 11/02/19) Home Meds Active Scripts Acetaminophen (Acetaminophen) 500 Mg Tab, 500 MG PO Q4HP PRN, #30 TAB Prov:KATHY IRELAND PAC 03/26/25 Ibuprofen Micronized (Ibuprofen) 800 Mg Tab, 800 MG PO Q8HP PRN, #20 TAB Prov:KATHY IRELAND PAC 03/26/25 Cephalexin (KEFLEX CAPSULE) 250 Mg Cp, 1 CAP PO QID for 7 Days, #28 CAP Prov:KATHY IRELAND PAC 03/26/25 Insulin Glargine (Basaglar Kwikpen) 100 Unit/Ml Inj, 30 UNIT SC QAM for 90 Days, #3 INJ Prov:LORA ANDINO MD 02/26/22 Reported Medications Lisinopril (Lisinopril) 2.5 Mg Tab, 1 TAB PO DAILY 05/12/24 Insulin Glargine (Lantus) 100 Unit/Ml Inj, 100 UNIT SC, INJ 05/12/24 Information Source: Patient, Emergency Med Personnel Mode of Arrival: EMS Severity: Moderate Timing: Hours Duration: Since onset Prehospital treatment: [employer], Treatment Past Medical History PAST MEDICAL HISTORY: DM Surgical History: Denies all surgeries Family History Family History: Reviewed,noncontributory to illness Social History Smoker: Cigarettes, Other Alcohol: Heavy Drugs: Marijuana, Methamphetamine Lives In: Home Constitutional: denies: chills, diaphoresis, fatigue, fever, malaise, sweats, weakness, others EENTM: reports: others (Left-sided head trauma); denies: blurred vision, double vision, ear bleeding, ear discharge, ear drainage, ear pain, ear ringing, eye pain, eye redness, hearing loss, mouth pain, mouth swelling, nasal discharge, nose bleeding, nose congestion, nose pain, photophobia, tearing, throat pain, throat swelling, voice changes Respiratory: denies: cough, hemoptysis, orthopnea, SOB at rest, shortness of breath, SOB with excertion, stridor, wheezing, others Cardiovascular: denies: chest pain, dizzy spells, diaphoresis, Dyspnea on exertion, edema, irregular heart beat, left arm pain, lightheadedness, palpitations, PND, syncope, others Gastrointestinal: denies: abdomen distended, abdominal pain, blood streaked bowels, constipated, diarrhea, dysphagia, difficulty swallowing, hematemesis, melena, nausea, poor appetite, poor fluid intake, rectal bleeding, rectal pain, vomiting, others Genitourinary: denies: burning, dysuria, flank pain, frequency, hematuria, incontinence, penile discharge, penile sore, pain, testicle pain, testicle swelling, urgency, others Neurological: denies: dizziness, fainting, headache, left sided numbness, left sided weakness, numbness, paresthesia, pre-existing deficit, right sided numbness, right sided weakness, seizure, speech problems, tingling, tremors, weakness, others Musculoskeletal: denies: back pain, gout, joint pain, joint swelling, muscle pain, muscle stiffness, neck pain, others Integumetry: denies: bruises, change in color, change in hair/nails, dryness, laceration, lesions, lumps, rash, wounds, others Allergic/Immunocompromised: denies: Difficulty Healing, Frequent Infections, Hives, Itching, others Hematologic/Lymphatic: denies: anemia, blood clots, easy bleeding, easy bruising, swollen glands, others Endocrine: denies: excessive hunger, excessive sweating, excessive thirst, excessive urination, flushing, intolerance to cold, intolerance to heat, unexplained weight gain, unexplained weight loss, others Psychiatric: denies: anxiety, bipolar disorder, depression, hopeless, panic disorder, schizophrenia, sleepless, suicidal, others Unable to Obtain due to: Altered Mental Status (Due to intoxication) Physical Exam General Appearance: Mild Distress (Patient was in mild distress due to intoxication with no real acknowledgement of his facial wound.), Normal HEENT: Pharynx Normal, TMs Normal, Other (Patient displays a for cm vertical laceration through the left eyebrow region. Localized edema. No skull depression or deformity. No vision involvement.) Neck: Full Range of Motion, Non-Tender, Normal, Normal Inspection Respiratory: Chest Non-Tender, Lungs Clear, No Accessory Muscle Use, No Respiratory Distress, Normal Breath Sounds Cardiovascular: No Edema, No JVD, No Murmur, No Gallop, Normal Peripheral Pulses, Regular Rate/Rhythm Breast Exam: Deferred Gastrointestinal: No Organomegaly, Non Tender, No Pulsatile Mass, Normal Bowel Sounds, Soft Genitalia: Deferred Pelvic: Deferred Rectal: Deferred Extremities: No calf tenderness, Non-tender Neurologic: Other (Patient is a intoxicated) Cerebellar Function: NOT DONE Reflexes: NOT DONE Skin: Dry, Lacerations (See HEENT for description of left-sided eyebrow laceration), Normal Color, Warm Lymphatic: No Adenopathy Was a procedure done? Was a procedure done?: Yes Sedation Sedation?: No Other Procedure Notes 4 cc of 1% lidocaine was utilized for local anesthesia. Sterile field was placed. Copious irrigation performed. Six 4-0 Ethilon sutures were utilized in a simple interrupted fashion to close the wound to the left eyebrow. Minimal blood loss. Patient tolerated procedure well. Clean dressing applied. Differential Dx Considerations may include: Hypoglycemia due to insulin overdose, head trauma, facial laceration, alcohol intoxication, illicit drug use X-Ray, Labs, Meds, VS Vital Signs Date Time Temp Pulse Resp B/P (MAP) Pulse Ox O2 Delivery O2 Flow Rate FiO2 03/26/25 00:20 98.1 82 20 120/79 (93) 97 98.1 03/26/25 00:20 80 20 97 Room Air* 0 21 03/25/25 23:36 98.8 79 20 138/74 79 98.8 Lab Test 03/25/25 23:54 03/25/25 23:41 Range/Units POC Glucose 120 H 70-106 mg/dl White Blood Count 7.8 4.4-10.8 10^3/uL Red Blood Count 5.10 4.5-5.90 10^6/uL Hemoglobin 16.1 13.5-17.5 g/dL Hematocrit 46.6 41.0-53.0 % Mean Corpuscular Volume 91.5 80.0-100.0 fL Mean Corpuscular Hemoglobin 31.6 28.0-32.0 pg Mean Corpuscular Hemoglobin Concent 34.5 32.0-36.0 g/dL Red Cell Distribution Width 13.2 11.8-14.3 % Platelet Count 230 140-450 10^3/uL Mean Platelet Volume 7.6 6.9-10.8 fL Neutrophils (%) (Auto) 78.0 37.0-80.0 % Lymphocytes (%) (Auto) 10.6 10.0-50.0 % Monocytes (%) (Auto) 8.0 0.0-12.0 % Eosinophils (%) (Auto) 2.7 0.0-7.0 % Basophils (%) (Auto) 0.7 0.0-2.0 % Neutrophils # (Auto) 6.1 1.6-8.6 10 ^3/uL Lymphocytes # (Auto) 0.8 0.4-5.4 10 ^3/uL Monocytes # (Auto) 0.6 0-1.3 10 ^3/uL Eosinophils # (Auto) 0.2 0-0.8 10 ^3/uL Basophils # (Auto) 0.1 0-0.2 10 ^3/uL Nucleated Red Blood Cells 0.2 % Sodium Level 144 136-145 mmol/L Potassium Level 4.2 3.5-5.1 mmol/L Chloride Level 106 98-107 mmol/L Carbon Dioxide Level 30 20-31 mmol/L Anion Gap 8 5-15 Blood Urea Nitrogen 15 9-23 mg/dL Creatinine 1.31 H 0.700-1.30 mg/dL Glomerular Filtration Rate Calc 65 >90 mL/min BUN/Creatinine Ratio 11.5 10.0-20.0 Serum Glucose 107 H 74-106 mg/dL Lactic Acid Level 0.8 0.4-2.0 mmol/L Calcium Level 9.3 8.7-10.4 mg/dL Plasma/Serum Blood Alcohol < 3.0 <10 mg/dL Current Medications Medications (Trade) Dose Ordered Sig/Merly Route Start Time Stop Time Status Last Admin Dextrose 250 ml ONCE ONCE IV 03/25/25 23:30 03/25/25 23:32 DC 03/25/25 23:30 Lidocaine HCl (Xylocaine 1%) 10 ml ONCE ONCE IJ 03/26/25 00:45 03/26/25 00:46 DC 03/26/25 00:45 Acetaminophen/ Hydrocodone Bitart ([place] 5/325MG Tab) 1 tab ONCE ONCE PO 03/26/25 02:15 03/26/25 02:16 DC 03/26/25 02:16 Sodium Chloride 1,000 ml @ 1,000 mls/hr Q1H ONCE IV 03/26/25 02:30 03/26/25 03:29 DC 03/26/25 02:45 X-Ray, Labs, Meds, VS Comment All studies performed the ED were evaluated by me personally. Serum studies were unremarkable for any systemic concerns including a 120 blood glucose and no discernible alcohol content. Drug tox screen was not utilize. CT head negative for acute findings. Patient care will be transferred to [facility] for evaluation of those studies once returned. Patient should return to primary care provider or ED in 10 days for re-evaluation and probable suture removal. Patient needs to follow up with the primary care doctor to discuss proper blood sugar management. Time of 1ST Reevaluation: 01:39 Reevaluation 1ST: Improved Consultation: PCP Patient Education/Counseling: Diagnosis, Treatment Family Education/Counseling: Diagnosis, Treatment SEPSIS Sepsis Screen Date sepsis recognized/suspect: Mar 26, 2025 Time Sepsis recognized/suspect: 0022 Recent Procedure: No On Antibiotic Therapy: No Respiratory Rate >20: No Heart Rate >90: No Temp<36 C (96.8 F) or >38.3 C: No SBP <90 or MAP <65 mmHG: No New Acute Mental Status Change: No Is the patient on CPAP, BIPAP,: No Physician Orders Urinalysis (03/25/25 23:29) Drug Screen (03/25/25 23:29) Heplock Iv (03/25/25 ) Accucheck (03/25/25 23:29) Head Without Contrast (03/26/25 01:05) Vital Signs Date Time Temp Pulse Resp B/P (MAP) Pulse Ox O2 Delivery O2 Flow Rate FiO2 03/26/25 00:20 98.1 82 20 120/79 (93) 97 98.1 03/26/25 00:20 80 20 97 Room Air* 0 21 03/25/25 23:36 98.8 79 20 138/74 79 98.8 Laboratory Tests Test 03/25/25 23:41 Lactic Acid Level 0.8 mmol/L (0.4-2.0) White Blood Count 7.8 10^3/uL (4.4-10.8) Medications Medications Dose Ordered Sig/Merly Route Start Time Stop Time Status Last Admin Dose Admin Acetaminophen/ Hydrocodone Bitart 1 tab ONCE ONCE PO 03/26/25 02:15 03/26/25 02:16 DC 03/26/25 02:16 Dextrose 250 ml ONCE ONCE IV 03/25/25 23:30 03/25/25 23:32 DC 03/25/25 23:30 Lidocaine HCl 10 ml ONCE ONCE IJ 03/26/25 00:45 03/26/25 00:46 DC 03/26/25 00:45 Sodium Chloride 1,000 ml @ 1,000 mls/hr Q1H ONCE IV 03/26/25 02:30 03/26/25 03:29 DC 03/26/25 02:45 Departure 1 Departure Time of Disposition: 01:39 Impression: Primary Impression: Hypoglycemia Additional Impressions: Insulin overdose Head trauma Facial laceration Disposition: HOME / SELF CARE / HOMELESS Condition: Stable Additional Instructions: Advise utilizing antibiotics as directed until completion as well as pain medication as needed. Patient should return to ED or primary care provider in the next 10 days for re-evaluation and probable suture removal. Patient needs to follow up with his primary care provider for education management of his currently poorly controlled blood sugar issues. e-Prescriptions Acetaminophen (Acetaminophen) 500 Mg Tab 500 MG PO Q4HP PRN, #30 TAB Prov: KATHY IRELAND PAC 03/26/25 Ibuprofen Micronized (Ibuprofen) 800 Mg Tab 800 MG PO Q8HP PRN, #20 TAB Prov: KATHY IRELAND PAC 03/26/25 Cephalexin (KEFLEX CAPSULE) 250 Mg Cp 1 CAP PO QID for 7 Days, #28 CAP Prov: KATHY IRELAND PAC 03/26/25 Discharged With: Self, Friend Critical Care Note Critical Care Time?: No Stability Stability form required: No Heart Score Heart Score: Heart Score Response (Comments) Value History N/A 0 EKG N/A 0 Age N/A 0 Risk Factors N/A 0 Troponin N/A 0 Total 0 KATHY IRELAND PAC Mar 26, 2025 01:42 ERASMO MURPHY [employer] Mar 26, 2025 03:35
[2025-03-26] MEDS: HYDROcodone-ACET 5/325MG TAB PO ONE (02:16)
--- NOTE | 2025-03-26 02:35 | DVH ---
EXAM: CT HEAD WITHOUT CONTRAST INDICATION: Fall/Left-sided forehead trauma TECHNIQUE: CT of the head without intravenous contrast. Radiation Dose : 1. Head: CT Dose: CTDI volume is 60.94 mGy. Dose-length product is 1.71 mGy*cm The dose indicators for CT are the volume Computed Tomography (CT) Dose Index (CTDIvol) and the Dose Length Product (DLP), and are measured in units of mGy and mGy-cm, respectively. These indicators are not patient dose, but values generated from the CT scanner acquisition factors. The report includes radiation exposure data for exposures received during this examination. COMPARISON: None FINDINGS: There is no evidence of acute intracranial hemorrhage, extra-axial collection, mass effect, midline s hift, herniation or hydrocephalus. The ventricles, sulci and cisterns are age appropriate. The parker-white differentiation is intact. Patchy periventricular and subcortical white matter hypoattenuation is nonspecific but may be related to small vessel ischemic disease. Pansinusitis. Chronic appearing Bilateral mastoid air cell scarring. The remaining left mastoid air c ells are clear. Large left frontal scalp hematoma. The surrounding soft tissues and osseous structures are unremarkab le. IMPRESSION: 1. No acute intracranial abnormality. 2. Large left frontal scalp hematoma. Radiation optimization: All CT scans at this facility use at least one of these dose optimization loco hniques: automated exposure control mA and/or kV adjustment per patient size (includes targeted exam s where dose is matched to clinical indication) or iterative reconstruction.
[2025-03-26] MEDS: SODIUM CHLORIDE 0.9% 1,000 ML IV ONE (02:45)
[2025-03-26] MEDS: InsuLIN REG 1unit/0.01ml Soln (100units/ml) IV ONE (02:58)
[2025-03-26 03:54] VITALS: BP 144/83; PULSE 66; RESP 18; TEMP 98.4; O2SAT 96
== END 2025-03-26 03:58 | disposition home or self-care (01) ==
LOC: EDBD 23:19 → ER 23:19
DX: S01.81XA Laceration without foreign body of other part of head, initial encounter (principal); E11.9 Type 2 diabetes mellitus without complications; E78.5 Hyperlipidemia, unspecified; F17.210 Nicotine dependence, cigarettes, uncomplicated; Z79.899 Other long term (current) drug therapy; Z88.0 Allergy status to penicillin; W18.39XA Other fall on same level, initial encounter; Y93.89 Activity, other specified; Y92.89 Other specified places as the place of occurrence of the external cause; Y99.8 Other external cause status
CPT/HCPCS: 12011; 36415; 70450; 80048; 80320; 82947; 83605; 85025; 96361; 96365; 99285; A4649; J2003; J7030; 82962